=== PATIENT | male | born 1965 | race Caucasian/White ===

== ENCOUNTER 2022-02-10 08:25 | Emergency (ER) | payer MEDICAID ==
[~2022-02-10] VITALS: Ht 175.3 cm; Wt 77.1 kg
[2022-02-10] MEDS ORDERED: IV NORMAL SALINE 1000 ML BAG IV ONE (09:15)
[2022-02-10 09:47] LABS: HEMATOCRIT 39.4 % (36.7-47.1); MEAN CORPUSCULAR VOLUME 72.6 fL (73.0-96.2); PLATELET COUNT (AUTO) 232 K/uL (152-348)
[2022-02-10 10:01] LABS: ETHANOL < 3 MG/DL (0-0)
[2022-02-10 10:08] LABS: ALANINE AMINOTRANSFERASE 16 U/L (16-63); ALKALINE PHOSPHATASE 90 U/L (50-136); ASPARTATE AMINOTRANSFERASE 13 U/L (15-37); BILIRUBIN,DIRECT 0.1 mg/dL (0.0-0.2); BILIRUBIN,TOTAL 0.6 mg/dL (0.2-1.0); CARBON DIOXIDE 27 mmol/L (21-32); CHLORIDE 99 mmol/L (98-107); CREATININE 0.9 mg/dL (0.6-1.3); GLUCOSE 123 mg/dL (74-106); POTASSIUM 3.5 mmol/L (3.5-5.1); TOTAL PROTEIN, SERUM 7.8 g/dL (6.4-8.2); UREA NITROGEN, BLOOD 11 mg/dL (7-18)
[2022-02-10 10:09] LABS: ACETAMINOPHEN < 10.0 ug/mL (10-30)
[2022-02-10 10:16] LABS: THYROID STIMULATING HORMONE 0.439 mIU/mL (0.358-3.740)
[2022-02-10] MEDS ORDERED: CEFTRIAXONE 2 G in IV DEXTROSE 5% 50 ML IV ONE (10:30)
[2022-02-10 11:07] LABS: LYMPHOCYTES % (MANUAL) 9 % (20-40); MONOCYTES % (MANUAL) 3 % (2-10); NEUTROPHILS % (MANUAL) 88 % (42-75)
[2022-02-10 11:24] LABS: *BILIRUBIN,URIN NEGATIVE (NEGATIVE); *CLARITY,URINE CLEAR (CLEAR); *COLOR,URINE YELLOW (YELLOW); *KETONES,URINE NEGATIVE (NEGATIVE); *UROBILINOGEN,URINE 0.2 E.U./dl (NORMAL); LEUKOCYTE ESTERASE ,URINE NEGATIVE (NEGATIVE); NITRITE, URINE NEGATIVE (NEGATIVE); PH,URINE 7.5 (5.0-8.0); UGLUCOSE NEGATIVE (NEGATIVE)
[2022-02-10 11:27] LABS: *BLOOD, URINE TRACE (NEGATIVE)
[2022-02-10 11:42] LABS: *AMPHETAMINE, URINE POSITIVE (NEGATIVE); *CANNABINOID, URINE NEGATIVE (NEGATIVE); *COCCAINE, URINE NEGATIVE (NEGATIVE); *OPIATE, URINE POSITIVE (NEGATIVE); *PHENCYCLIDINE SCREEN,URINE NEGATIVE (NEGATIVE)
[2022-02-10 11:46] LABS: BACTERIA,URINE NONE SEEN /HPF (NONE SEEN); RBC,URINE 0-3 /HPF (0-3); WBC,URINE NONE SEEN /HPF (0-3)
[2022-02-10 11:47] LABS: SQUAMOUS EPITHELIAL CELL,UR FEW /HPF (NONE SEEN)
--- NOTE | 2022-02-10 13:54 | NUR ---
Pt did not wait for discharge instructions, picked up by relative.
[2022-02-10 13:56] VITALS: BP 139/82
== END 2022-02-10 13:40 | disposition home or self-care (01) ==
LOC: ER 08:25
DX: F15.129 Other stimulant abuse with intoxication, unspecified (principal); F11.129 Opioid abuse with intoxication, unspecified; F13.129 Sedative, hypnotic or anxiolytic abuse with intoxication, unspecified; D72.829 Elevated white blood cell count, unspecified; Z20.822 Contact with and (suspected) exposure to COVID-19
CPT/HCPCS: 80076; 80048; 81001; 82140; 82550; 84443; 85007; 85025; 85730; 87400; 87426; 87040 ×3; 84484; 36415; 93005; 71045; 70450; 99285; 96361; 96365; 83605; 80299; 80320; 80307; J0696; J7040; 70030-TC; A4663; C1758; G0480